=== PATIENT | female | born 1980 | race Caucasian/White ===

== ENCOUNTER → 2016-10-24 | Outpatient (CLI) | payer OTHER ==
[~2016-10-24] MED LIST: LACT10CA3; METR-163 PO; PRENTAB26 PO
== END | disposition home or self-care (01) ==
LOC: C.LABSPEC 14:35
PROVIDERS: ATTEND Obstetrics & Gynecology
DX: O09.513 Supervision of elderly primigravida, third trimester (principal); Z3A.00 Weeks of gestation of pregnancy not specified

== ENCOUNTER 2016-11-13 02:06 | Inpatient (IN) | payer OTHER ==
[~2016-11-13] VITALS: Ht 162.6 cm; Wt 63.8 kg
[~2016-11-13 02:06] MED LIST changes: -LACT10CA3; -PRENTAB26 PO
[2016-11-13] MEDS ORDERED: LACTATED RINGER'S 1000ML 1,000 ML IV PRN (02:55)
[2016-11-13] MEDS ORDERED: LACTATED RINGER'S 1000ML 1,000 ML IV SCH (02:55)
[2016-11-13] MEDS ORDERED: PRENTAB26 PO (02:58)
[2016-11-13] MEDS ORDERED: LACT10CA3 (02:58)
[2016-11-13 03:00] VITALS: Ht 162.6 cm; Wt 63.8 kg
[2016-11-13 03:14] LABS: HEMATOCRIT 41.9 % (37-47); MEAN CELL VOLUME 88.6 fL (80-100); MEAN CORPUSCULAR HEMOGLOBIN 31.9 pg (25-34); MEAN PLATELET VOLUME 11.1 fL (7.4-10.4); PLATELET COUNT 163 K/uL (130-400); RED BLOOD COUNT 4.73 M/uL (4.2-5.4); WHITE BLOOD COUNT 7.47 K/uL (4.8-10.8)
[2016-11-13] MEDS ORDERED: FENTANYL CITRATE INJ 50 MCG/1 ML 2 ML VIAL ONE (03:29)
[2016-11-13] MEDS ORDERED: BUPIVACAINE 0.25% 30 ML VIAL ONE (03:29)
[2016-11-13] MEDS ORDERED: EpHEDrine SULFATE INJ 50 MG/ML AMP ONE (03:29)
[2016-11-13] MEDS ORDERED: FENTANYL 2MCG/ML ROPIV 1.25MG/ML 100ML BAG EPI ONE (03:29)
[2016-11-13] MEDS ORDERED: LACTATED RINGER'S 1000ML 500 ML IV PRN (04:14)
[2016-11-13] MEDS ORDERED: DiphenhydrAMINE HCL 50 MG/ML VIAL IV PRN (04:15)
[2016-11-13] MEDS ORDERED: EpHEDrine SULFATE INJ 50 MG/ML AMP IV PRN (04:15)
[2016-11-13] MEDS ORDERED: ONDANSETRON INJ 2 MG/ML 2 ML VIAL IV PRN (04:15)
[2016-11-13] MEDS ORDERED: NALOXONE HCL INJ 0.4 MG/1 ML VIAL/CARP IV PRN (04:15)
[2016-11-13] MEDS ORDERED: FENTANYL 2MCG/ML ROPIV 1.25MG/ML 100ML BAG EPI PRN (04:15)
[2016-11-13] MEDS ORDERED: NALBUPHINE HCL INJ 10 MG/ML AMP IV PRN (04:15)
--- NOTE | 2016-11-13 07:58 | Medical Student: [facility] ---
Med Student History & Physical Date of Service Nov 13, 2016. Chief Complaint LABOR History of Present Illness Source: patient, clinic records Patient is a 36 year old , 39 weeks and 5 days GA, VANDANA 11/15/16 by LMP 08/16 who presented for normal labor. Patient started having contractions about 2.5 minutes apart overnight and came in to the hospital at 0200. She was about 4 cm dilated on arrival. She got an epidural at 0400. Her membranes were ruptured at 0630. Her course has been significant for gestational diabetes discovered at 16 weeks GA. Her diabetes screen showed a glucose of 202. Her last ultrasound on 10/17/16 showed an AC in the 53rd percentile. All weekly NSTs since 36 weeks GA have been reactive. The patient's PMH is significant for colon polyps (tubular adenomas), enlarged thyroid, and PCOS. Patient has no obstetrical history. Gynecologic history is significant for menarche at age 14 with menstruation occurring about every 35 days. No history of abnormal pap smears or STDs. Surgical history is significant for wisdom teeth removal and colonoscopies every 5 years. Patient is blood type O +, negative antibody screen, rubella immune, VDRL/RPR nonreactive, negative HbsAg & HIV, negative G & C, negative materni T21, negative AFP, and negative GBS culture. 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 Patient has no history of abnormal pap smears. Pap smear during and in 2014 were negative for intraepithelial lesion or malignancy. Patient has no history of STDs. Past Medical History Past medical history is significant for gestational diabetes, PCOS, enlarged thyroids, and colon polyps (tubular adenomas). Past Surgical History Surgical history is significant for wisdom teeth removal and colonoscopies every 5 years. Family History Mom - colon CA Maternal grandmother - breast CA Paternal grandmother - colon CA Maternal aunt - breast CA Paternal and Maternal grandmother - diabetes Social History Smoking Status: Never Smoker Smokeless Tobacco Use: No Alcohol Use: none Drug Use: none Marital Status: Allergies Coded Allergies: Ciprofloxacin (Verified Allergy, Intermediate, welts, 11/13/16) Metronidazole (Verified Allergy, Mild, headache, 11/13/16) Quinolones (Verified Allergy, Mild, 11/05/09) Home Medications Lactobacillus-Inulin (Culturelle) Multivit/Min/Iron/Fol Ac/Pren ( Vitamin), 1 TAB PO DAILY Review of Systems Constitutional: No fever Respiratory: No cough, No shortness of breath Cardiovascular: No chest pain, No palpitations Abdomen: No constipation, No diarrhea, No nausea, No pain, No vomiting Genitourinary - Female: No dysuria Physical Exam General Appearance: WD/WN, no apparent distress Respiratory/Chest: lungs clear, normal breath sounds Cardiovascular: regular rate, rhythm, no edema, no gallop, no JVD, no murmur Skin: normal color, warm/dry, no rash Cervical Exam: 7 cm, 100% effaced, 0 station @ 0630 Monitoring External Monitor: heart tracing Category 1: HR 130, moderate variability, present accelerations, absent variable, late and early decelerations Tocodynamometer: contractions every 2.5-3 minutes Laboratory Results 11/13/16 03:10 Test 11/13/16 02:46 11/13/16 03:10 Bedside Glucose 85 mg/dl (70-90) Red Blood Count 4.73 M/uL (4.2-5.4) Mean Corpuscular Volume 88.6 fL (80-100) Mean Corpuscular Hemoglobin 31.9 pg (25-34) Mean Corpuscular Hemoglobin Concent 36.0 g/dl (32-36) RDW Standard Deviation 43.3 fL (36.4-46.3) RDW Coefficient of Variation 13.3 % (11.5-14.5) Mean Platelet Volume 11.1 fL (7.4-10.4) Assessment and Plan Patient is a 36 year old , 39 weeks and 5 days GA, VANDANA 11/15 by LMP 02/08, who presented for normal labor. Patient is blood type O +, rubella immune, and GBS culture negative. Patient is currently in active stage 1 of labor. heart tracings Category 1. Epidural is in place. Plan is to continue EFM and perform periodic cervical exams to track progression of labor.
[2016-11-13] MEDS ORDERED: OXYTOCIN 30 UNITS/500ML NSS IV ONE (10:30)
--- NOTE | 2016-11-13 11:59 | Medical Student: [facility] ---
Medical Student Delivery Note PRE-DELIVERY DIAGNOSIS: 36 year old , 39 weeks 5 days GA, normal labor POST-DELIVERY DIAGNOSIS: same PROCEDURE: Normal spontaneous vaginal delivery, 2nd degree laceration repair and right mediolateral episiotomy repair ESTIMATED BLOOD LOSS: 500 cc FINDING: viable female , apgars 8/9, weight pending DESCRIPTION OF DELIVERY: Patient received epidural and progressed to complete labor. She began to push for 2 hours and 45 minutes. A right mediolateral episiotomy was performed. The patient then spontaneously vaginally delivered a viable female . The was delivered in the right occiput anterior position. After the head was delivered, the mouth and nares were suctioned. No nuchal cord was noted. Next, the anterior shoulder was delivered followed by the posterior shoulder. Then the body was delivered. The baby was warmed and dried and subsequently placed on the mother's chest. The baby immediately cried. The cord was doubly clamped and cut for cord gas. Cord blood was then collected. Manual massage was then applied to the uterus.The placenta was then delivered spontaneously.The placenta was intact with 2 umbilical arteries, 1 umbilical vein and all cotyledons. Next, the perineum, vagina and cervix were inspected for any tears. A second degree laceration was appreciated. The 2nd degree laceration and right mediolateral episiotomy were repaired. Sponges, instruments, and needles were counted and correct at the end of the delivery. Hemostasis was achieved and Oxytocin started.
[2016-11-13] MEDS ORDERED: ACETAMINOPHEN 325 MG TAB PO PRN (12:00)
[2016-11-13] MEDS ORDERED: LANOLIN OINT EXT PRN ×2 (12:00)
[2016-11-13] MEDS ORDERED: SUPERCREAM 0.870 % 15GM JAR EXT PRN (12:00)
[2016-11-13] MEDS ORDERED: ACETAMINOPHEN/CODEINE 300/30MG TAB PO PRN ×2 (12:00)
[2016-11-13] MEDS ORDERED: BENZOCAINE 20% AER SPR 82.5 GM CAN EXT PRN (12:00)
--- NOTE | 2016-11-13 12:26 | Anesthesia Procedure Note ---
Anesthesia Epidural Removal Nt Date & Time Nov 13, 2016 at 12:26 Vital Signs Pain Intensity: 0.0 Notes Mental Status: alert / awake / arousable, participated in evaluation Nausea / Vomiting: adequately controlled Pain: adequately controlled Airway Patency, RR, SpO2: stable & adequate BP & HR: stable & adequate Hydration State: stable & adequate Neuraxial Anesthesia: was administered Anesthetic Complications: no major complications apparent, pt satisfied with anesthetic care Epidural: removed without complications, with tip intact
--- NOTE | 2016-11-13 13:22 | DELIVERY SUMMARY ---
DATE OF OPERATION: 11/13/2016 The patient is a 36-year-old 1, P0 white female, EDC of 11/15/2016, who presented in spontaneous labor. Membranes were ruptured. She received epidural analgesia. She is GBS negative but was a gestational diabetic during and was diet controlled. She pushed for 2 hours and 45 minutes over a mediolateral episiotomy for delivery of a viable female . Mouth and nasopharynx were suctioned on the perineum. The rest of the delivered easily, was placed on the mother's abdomen for further attention. There was spontaneous crying and the infant was moving all 4 limbs. The cord was clamped and cut, placenta was expressed intact with a 3-vessel cord. The mediolateral episiotomy was repaired with 3-0 chromic. A midline second degree laceration was repaired with 3-0 chromic as well in the usual fashion. Hemostasis was excellent at the end of the case. Mother and were doing well. Estimated blood loss was 500 mL. There was a steady bleeding which was controlled with dilute Pitocin and fundal massage. I attest to the content of the Intraoperative Record and any orders documented therein. Any exceptio ns are noted below.
[2016-11-13 15:30] VITALS: BP 135/83; PULSE 109; TEMP 36.8; O2SAT 97
[2016-11-13] MEDS: IBUPROFEN 600 MG TAB PO PRN ×2 (15:48→20:51)
[2016-11-13 20:35] VITALS: BP 105/71; PULSE 85; TEMP 36.8
[2016-11-13] MEDS: DOCUSATE SODIUM 100 MG CAP PO SCH (20:51)
[2016-11-13 23:15] VITALS: BP 112/74; PULSE 86; TEMP 36.5
[2016-11-14 03:21] VITALS: BP 114/81; PULSE 87; TEMP 36.7
[2016-11-14] MEDS: IBUPROFEN 600 MG TAB PO PRN ×3 (06:24→22:15)
--- NOTE | 2016-11-14 06:44 | Medical Student: [facility] ---
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 Subjective conversation w/ patient Ambulation: ambulating normally Voiding: no voiding problems Passing Gas: Yes Diet Tolerance: Regular Diet Lochia: Moderate (rubra) Feeding Type: Breast Feeding Pain: bottom pain Review of Systems Constitutional: No chills, No fever Respiratory: No cough, No shortness of breath Cardiac: No chest pain, No palpitations Abdomen: + constipation, No diarrhea, No nausea, No pain, No vomiting Female : No dysuria Objective Vital Signs Date Time Temp Pulse Resp B/P Pulse Ox O2 Delivery O2 Flow Rate FiO2 11/14/16 03:21 36.7 87 18 114/81 Room Air 11/13/16 23:15 36.5 86 20 112/74 Room Air 11/13/16 23:15 Room Air 11/13/16 20:35 36.8 85 18 105/71 Room Air 11/13/16 15:30 36.8 109 16 135/83 97 Room Air 11/13/16 15:30 97 Room Air Physical Exam General Appearance: WELL-APPEARING, NO APPARENT DISTRESS Respiratory/Chest: lungs clear, normal breath sounds Cardiovascular: regular rate, rhythm, no gallop, no murmur Abdomen: normal bowel sounds Fundus: Firm, Non-Tender, Relation to Umbilicus (at umbilicus ) Extremities: non-tender, + pedal edema (1 + pedal edema b/l ) Laboratory Results Last 24 Hours Test 11/14/16 04:44 Medications Medications (Trade) Dose Ordered Sig/Ramu Route Start Time Stop Time Status Last Admin Dose Admin Oxytocin (Pitocin IV) 30 units STK-MED ONCE IV 11/13/16 10:30 11/13/16 10:32 DC 11/13/16 11:34 30 UNITS Cocaine HCl (Supercream 0.870% Cr) BID PRN EXT 11/13/16 12:00 11/27/16 11:59 11/13/16 15:49 15 GM Ibuprofen (Motrin Tab) 600 mg Q4H PRN PO 11/13/16 12:00 12/13/16 11:59 11/14/16 06:24 600 MG Docusate Sodium (coLACE CAP) 100 mg BID PO 11/13/16 20:00 12/13/16 19:59 11/13/16 20:51 100 MG Assessment and Plan Post- Day Number: 1 Continue Routine Care: Patient is 36 years old, , s/p and repair of 2nd degree perineal laceration and right mediolateral episiotomy -vitals stable and WNL -blood type O +, rubella immune -doing well clinically -encourage ambulation -tolerating PO diet -pain well controlled with PO Ibuprofen 600 mg q4hr -controlling constipation with PO Colace 100 mg BID -continue routine care
[2016-11-14 07:12] LABS: HEMATOCRIT 32.1 % (37-47)
--- NOTE | 2016-11-14 07:31 | OB/GYN Progress Note ---
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 Subjective conversation w/ patient, physical exam Ambulation: ambulating normally Voiding: no voiding problems, no incontinence Passing Gas: Yes Diet Tolerance: Regular Diet Lochia: Moderate Feeding Type: Breast Feeding Pain: minimal bottom Review of Systems Constitutional: No chills, No fever Respiratory: No cough, No shortness of breath Cardiac: No chest pain, No palpitations Abdomen: No pain Objective Vital Signs Date Time Temp Pulse Resp B/P Pulse Ox O2 Delivery O2 Flow Rate FiO2 11/14/16 03:21 36.7 87 18 114/81 Room Air 11/13/16 23:15 36.5 86 20 112/74 Room Air 11/13/16 23:15 Room Air 11/13/16 20:35 36.8 85 18 105/71 Room Air 11/13/16 15:30 36.8 109 16 135/83 97 Room Air 11/13/16 15:30 97 Room Air Physical Exam General Appearance: WELL-APPEARING Respiratory/Chest: chest non-tender, lungs clear, normal breath sounds Cardiovascular: regular rate, rhythm, no edema Abdomen: normal bowel sounds Fundus: Firm, Non-Tender, Relation to Umbilicus (at the umbilicus) Extremities: normal inspection, no pedal edema, no calf tenderness Laboratory Results Last 24 Hours Test 11/14/16 04:44 Assessment and Plan Post- Day Number: 1 Continue Routine Care: Keisha 36 YO F Day 1 Post- after Ibuprofen PRN for pain Encourage increase ambulation Escalate diet as tolerated
[2016-11-14 07:40] VITALS: BP 122/83; PULSE 89; TEMP 36.5
[2016-11-14] MEDS: DOCUSATE SODIUM 100 MG CAP PO SCH ×2 (08:24→19:51)
[2016-11-14 12:20] VITALS: BP 115/82; PULSE 91; TEMP 36.7
[2016-11-14 15:00] VITALS: BP 113/78; PULSE 81; TEMP 36.6
[2016-11-14] MEDS ORDERED: BISACODYL 5 MG TABEC PO SCH (20:00)
[2016-11-14 23:35] VITALS: BP 119/82; PULSE 77; TEMP 36.5; O2SAT 99
--- NOTE | 2016-11-15 07:15 | Medical Student: [facility] ---
Med Student HOSPITAL INTERN Progress Nt Date of Service Nov 15, 2016. Subjective conversation w/ patient Ambulation: ambulating normally Voiding: no voiding problems Passing Gas: Yes Diet Tolerance: Regular Diet Lochia: Small (rubra) Feeding Type: Breast Feeding Pain: left ankle pain Review of Systems Constitutional: No fever Respiratory: No cough, No shortness of breath Cardiac: + edema (left ankle ), No chest pain, No palpitations Abdomen: + constipation, No diarrhea, No nausea, No pain, No vomiting Female : No dysuria Objective Vital Signs Date Time Temp Pulse Resp B/P Pulse Ox O2 Delivery O2 Flow Rate FiO2 11/14/16 23:35 99 Room Air 11/14/16 23:35 36.5 77 18 119/82 99 Room Air 11/14/16 15:00 36.6 81 18 113/78 Room Air 11/14/16 15:00 Room Air 11/14/16 12:20 36.7 91 18 115/82 Room Air 11/14/16 07:40 36.5 89 18 122/83 Room Air 11/14/16 07:40 Room Air Physical Exam General Appearance: WELL-APPEARING, NO APPARENT DISTRESS Respiratory/Chest: lungs clear, normal breath sounds Cardiovascular: regular rate, rhythm, no gallop, no murmur Abdomen: normal bowel sounds Fundus: Firm, Non-Tender, Relation to Umbilicus (at umbilicus ) Extremities: normal range of motion, no calf tenderness, + pedal edema (2 + left ankle edema, 1 + right ankle edema ), + pertinent finding (ecchymosis over left ankle ) Laboratory Results Last 24 Hours Test 11/14/16 06:51 Hemoglobin 11.4 g/dL Hematocrit 32.1 % Medications Medications Administered Medications (Trade) Dose Ordered Sig/Ramu Route Start Time Stop Time Status Last Admin Dose Admin Lactated Ringer's 1,000 ml @ 125 mls/hr Q8H IV 11/13/16 02:55 11/15/16 02:54 DC 11/13/16 04:14 125 MLS/HR Lactated Ringer's (Lr 1000ml) 1,000 ml @ 999 mls/hr Q1H1M PRN IV 11/13/16 02:55 11/13/16 12:02 DC 11/13/16 03:26 999 MLS/HR Fentanyl/ Ropivacaine (Fentanyl 2MCG/ Ml/Ropivacaine 1.25MG/ML) 100 ml STK-MED ONCE EPI 11/13/16 03:29 11/13/16 03:31 DC 11/13/16 04:11 100 ML Fentanyl/ Ropivacaine (Fentanyl 2MCG/ Ml/Ropivacaine 1.25MG/ML) 100 ml PRN PRN EPI 11/13/16 04:15 11/13/16 12:02 DC 11/13/16 07:05 100 ML Oxytocin (Pitocin IV) 30 units STK-MED ONCE IV 11/13/16 10:30 11/13/16 10:32 DC 11/13/16 11:34 30 UNITS Cocaine HCl (Supercream 0.870% Cr) BID PRN EXT 11/13/16 12:00 11/27/16 11:59 11/13/16 15:49 15 GM Ibuprofen (Motrin Tab) 600 mg Q4H PRN PO 11/13/16 12:00 12/13/16 11:59 11/14/16 22:15 600 MG Bisacodyl (Dulcolax Tab) 5 mg 20 PO 11/14/16 20:00 11/14/16 20:01 DC 11/14/16 19:51 5 MG Docusate Sodium (coLACE CAP) 100 mg BID PO 11/13/16 20:00 12/13/16 19:59 11/14/16 19:51 100 MG Assessment and Plan Post- Day Number: 2 Continue Routine Care: 36 year old, , PP day 2, s/p and repair of 2nd degree perineal laceration and right mediolateral episiotomy. Left ankle swelling and ecchymosis. No concern for blood clot because patient denied calf tenderness and SOB. Discharge home today. -vitals stable and WNL -bloody type O +, rubella immune -doing well clinically -tolerating PO diet -pain well controlled with supercream and 600 mg Ibuprofen q4hr PO PRN -encourage ambulation & fluids & applying ice to left ankle -encourage no intercourse or douching for 6 weeks until 6 week PP visit -call OB if excessive vaginal bleeding (changing pads every 30 minutes or passing significant clots) or if breast redness and fever develop -discharge home today
--- NOTE | 2016-11-15 07:28 | OB/GYN Progress Note ---
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 Subjective conversation w/ patient, physical exam Ambulation: ambulating normally Voiding: no voiding problems, no incontinence Passing Gas: Yes Diet Tolerance: Regular Diet Lochia: Small Feeding Type: Breast Feeding Pain: minimal Review of Systems Constitutional: No chills, No fever, No sweats Respiratory: No cough, No sputum Cardiac: No chest pain, No edema, No palpitations Abdomen: No nausea, No pain, No vomiting Objective Vital Signs Date Time Temp Pulse Resp B/P Pulse Ox O2 Delivery O2 Flow Rate FiO2 11/14/16 23:35 99 Room Air 11/14/16 23:35 36.5 77 18 119/82 99 Room Air 11/14/16 15:00 36.6 81 18 113/78 Room Air 11/14/16 15:00 Room Air 11/14/16 12:20 36.7 91 18 115/82 Room Air 11/14/16 07:40 36.5 89 18 122/83 Room Air 11/14/16 07:40 Room Air Physical Exam General Appearance: WELL-APPEARING Respiratory/Chest: chest non-tender, lungs clear, normal breath sounds Cardiovascular: regular rate, rhythm, no edema, no murmur Abdomen: normal bowel sounds, non tender, soft Fundus: Firm, Non-Tender, Relation to Umbilicus (2 cm below umbilicus) Extremities: non-tender, no calf tenderness, + pedal edema, + pertinent finding (small amount of pain just proximal to the left medial malleolus) Medications Current Inpatient Medications Medications (Trade) Dose Ordered Sig/Ramu Route Start Time Stop Time Status Last Admin Dose Admin Benzocaine (Dermoplast Aero Spr) 1 appln PRN PRN EXT 11/13/16 12:00 12/13/16 11:59 Cocaine HCl (Supercream 0.870% Cr) BID PRN EXT 11/13/16 12:00 11/27/16 11:59 11/13/16 15:49 15 GM Lanolin (Lanolin Oint) PRN PRN EXT 11/13/16 12:00 12/13/16 11:59 Ibuprofen (Motrin Tab) 600 mg Q4H PRN PO 11/13/16 12:00 12/13/16 11:59 11/14/16 22:15 600 MG Acetaminophen (Tylenol Tab) 650 mg Q6H PRN PO 11/13/16 12:00 12/13/16 11:59 Acetaminophen/ Codeine Phosphate (Tylenol w/ Codeine #3 Tab) 1 tab Q4H PRN PO 11/13/16 12:00 12/13/16 11:59 Acetaminophen/ Codeine Phosphate (Tylenol w/ Codeine #3 Tab) 2 tab Q4H PRN PO 11/13/16 12:00 12/13/16 11:59 Docusate Sodium (coLACE CAP) 100 mg BID PO 11/13/16 20:00 12/13/16 19:59 11/14/16 19:51 100 MG Assessment and Plan Post- Day Number: 2 Continue Routine Care: 36 year old female s/p Day 2 - vital signs reviewed and WNL - Hgb 11.4 - Blood type O+, GBS-, Rubella immune - Patient doing well clinically - Encourage ambulation, monitor and control pain with motrin prn, resume regular diet, monitor lochia - Encourage breast feeding - Continue to monitor leg swelling and ankle pain, advised to let physician know if patient experiences worsening calf/ankle pain - Pt counselled on discharge instructions - Patient to be discharged today with OB follow up in 6 weeks Resident Physician Supervision Note: I interviewed and examined the patient. Discussed with Dr. Eng and agree with findings and plan as documented in the note. Any exceptions or clarifications are listed here: none, doing well, routine care. Documented By: Tahira Fisher
--- NOTE | 2016-11-15 07:30 | Discharge Instructions ---
Discharge Instructions Admission Reason for Admission: LABOR Discharge Discharge Diagnosis / Problem: s/p day 2 Discharge Goals Goal(s): Routine recovery after delivery Medications Continue Dispensed Medications: supercream, dermaplast, tucks, lansinoh Activity Recommendations Activity Limitations: resume your previous activity . Instructions / Follow-Up Instructions / Follow-Up ACTIVITY RECOMMENDATIONS: * Gradual return to full activity over the next 2-3 weeks. * No lifting - nothing heavier than baby over the next 2-3 weeks. * Do not engage in vigorous exercise, sexual activity or sports until cleared by your physician. * Do not drive or operate any motorized equipment until cleared by your physician. * You may shower/bathe daily. MEDICATIONS: For discomfort or pain, you may use Acetaminophen (Tylenol), Ibuprofen (Advil), or Naproxen (Aleve) following the package directions. For constipation you may use Colace following the package directions. BREAST CARE: If you are not breast feeding: * Wear a supportive bra 24 hours a day for one to two weeks. * Avoid stimulating your breasts and nipples as much as possible during the first few weeks after delivery. * When taking a shower, have the warm water hit your back, not breasts. * When your breasts feel full, apply ice packs. Usually three to four times a day helps ease the discomfort. * Take a mild pain medication (Tylenol / Motrin) when you are uncomfortable. If breast feeding: * Use breast milk to lubricate nipples. Lansinoh cream may be used for sore nipples. You do not need to remove cream prior to breast feeding. If using a different brand of cream, check the label for directions regarding removal of cream prior to nursing. * Wear a supportive bra. * If having problems with breasts or breast feeding, call a professional housing consultant or your health care provider. EPISIOTOMY CARE: After delivery, if you have an episiotomy (stitches), the following steps will ease discomfort and aid healing. * For the first 24 hours after delivery, place ice packs next to your episiotomy to help reduce swelling. * After the first 24 hour-period, sitz baths, either portable or in the tub, are suggested. A shower with a shower arm sprayed over the episiotomy may be comforting. * Lyndsey care should be done after each voiding and bowel movement. Squirt warm water from a plastic bottle over the perineum (region of the body between the anus and urinary opening) and pat dry. * Use Dermoplast to ease discomfort. Shake container. [place] directly over the episiotomy. Place a Tucks on a clean sanitary pad next to your episiotomy. SPECIAL CARE INSTRUCTIONS: When you are discharged from the hospital, it is important for you to follow the instructions listed below: * During the first week at home, you should be able to care for yourself and your baby. In addition, the usual light household activities are encouraged. * Limit your activities to the way you feel. Do not try to clean the house or move furniture. Be sensible. * If you actively engage in sports and have done so up until the time of your delivery, you may resume these activities as soon as you feel able. This may take up to one month or even longer. Use good judgment. * Continue to take your vitamins for at least six weeks after the of your baby. * Your diet need not be limited unless you were on a special diet before your delivery. Breast-feeding mothers need around 2500 calories per day and at least 64-80 ounces of fluid per day (8 to 10 glasses). * You should eat foods from the four major food groups. Crash diets or fad diets are to be avoided. Eating lean meats, fresh fruits and vegetables, low-fat dairy products, high fiber foods and a regular exercise program, will help you get back to your pre- weight without putting your health at risk. * Constipation is sometimes a problem after delivery. Take a mild laxative as needed. If breast feeding, Milk of Magnesia is acceptable to use. You may use a suppository or Fleets enema if no episiotomy. * A daily shower or tub bath is suggested. Be sure to thoroughly and gently dry the perineum. * A bloody vaginal discharge will usually continue until around four weeks post . A small amount of bleeding may continue for as long as six weeks. Vaginal discharge changes from the bright red bleeding after delivery to pink then brownish and finally yellowish-pink before becoming white and disappearing. * Bleeding may increase with activity. Your first period may come in 4-8 weeks. If you are breast feeding, your period may be delayed even longer. * Bryson (sex) can begin whenever both you and your partner feel comfortable and do not have any form of genital infection. It is recommended that you wait at least six weeks for internal and external healing to occur. If you have questions, please talk to your health care practitioner. A condom should be used to prevent infection and . * Foreplay, gentle intercourse and lubrication is very important the first several times to prevent pain. A water-based lubricant such as K-Y jelly or Astroglide may be used. * If you have RH negative blood and your baby is RH positive, you will receive RHOGAM by injection prior to discharge. The nurse will give you a card to keep with you that has the date and place that you received RHOGAM after delivery. * During your care, you had a Rubella screen done to check for the presence of rubella antibodies in your blood. If your test was negative, you will receive a Rubella vaccine prior to discharge. This vaccine may cause a fever, soreness at the injection site and flu-like symptoms. If these symptoms persist, notify your health care practitioner. is not advised for one month after a Rubella vaccine. * Verbalizes understanding of car seat law as reviewed with patient nursing. * Car Seat hand-out given and reviewed with patient by nursing. * Shaken baby information reviewed with patient by nursing. Call you doctor if: * Heavy bleeding (saturating several pads an hour) or passing clots the size of your fist. * A fever >101 degrees F (38.3 degrees C) on two occasions four hours apart and /or chills. * Unusual pain in the pelvic or vaginal areas. * "Baby Blues" lasting longer than two weeks. If you have any questions or concerns, call your health care practitioner at . FOLLOW UP VISIT: * Please call the office at to schedule a 6 week examination. It is important you keep this appointment. It is important for you to make arrangements for either yearly or twice yearly check-ups thereafter. Current Hospital Diet Patient's current hospital diet: Regular OB Diet Discharge Diet Recommended Diet: Regular OB Diet Pending Studies Studies pending at discharge: no Medical Emergencies . Who to Call and When: Medical Emergencies: If at any time you feel your situation is an emergency, please call 911 immediately. . Non-Emergent Contact Non-Emergency issues call your: [employer] Installer . . "Provider Documentation" section prepared by Daren Eng. VTE Core Measure Inpt VTE Proph given/why not?: Treatment not indicated
[2016-11-15 08:00] VITALS: BP 120/72; PULSE 82; TEMP 36.7; O2SAT 99
[2016-11-15] MEDS: DOCUSATE SODIUM 100 MG CAP PO SCH (08:24)
[2016-11-15] MEDS: IBUPROFEN 600 MG TAB PO PRN (09:21)
[2016-11-15 11:25] VITALS: BP_DIAS 72; PULSE 82; TEMP 36.7
== END 2016-11-15 11:30 | disposition home or self-care (01) | DRG 774 ==
LOC: C.LD 02:06 → C.OPB 02:06 → C.LD 02:57 → C.OBG 15:33 → EDSTATUS 11-15 02:05
PROVIDERS: ADMIT Obstetrics & Gynecology; ATTEND Obstetrics & Gynecology
PROC: 10E0XZZ Delivery of Products of Conception, External Approach (ICD-10-PCS; principal; 2016-11-13)
PROC: 0KQM0ZZ Repair Perineum Muscle, Open Approach (ICD-10-PCS; principal; 2016-11-13)
PROC: 0W8NXZZ Division of Female Perineum, External Approach (ICD-10-PCS; principal; 2016-11-13)
DX: O24.420 Gestational diabetes mellitus in childbirth, diet controlled (principal); O90.89 Other complications of the puerperium, not elsewhere classified; R60.0 Localized edema; M25.572 Pain in left ankle and joints of left foot; O70.1 Second degree perineal laceration during delivery; Z37.0 Single live birth; Z3A.39 39 weeks gestation of pregnancy

== ENCOUNTER → 2016-12-29 | Outpatient (CLI) | payer OTHER ==
[~2016-12-29] MED LIST changes: +LACT10CA3; -METR-163 PO; +PRENTAB26 PO
== END | disposition home or self-care (01) ==
LOC: C.PAPS 11:11
PROVIDERS: ATTEND Obstetrics & Gynecology
DX: Z12.4 Encounter for screening for malignant neoplasm of cervix (principal)

== ENCOUNTER → 2016-12-29 | Outpatient (CLI) | payer OTHER | END | disposition home or self-care (01) | LOC: C.LABSPEC 15:55 | PROVIDERS: ATTEND Obstetrics & Gynecology | DX: Z12.4 Encounter for screening for malignant neoplasm of cervix (principal) ==